=== PATIENT | female | born 1945 | race Caucasian/White ===

== ENCOUNTER 2025-03-03 19:17 | Emergency (ER) | payer MEDICARE, SELFPAY ==
[2025-03-03 19:25] VITALS: BP 120/56; PULSE 66; RESP 16; TEMP 36.2; O2SAT 100; BMI 18.0
--- NOTE | 2025-03-03 19:30 | DI.RAD.S_ITS ---
PROCEDURE: XR FOOT LT MIN 3V INDICATIONS: fall with pain and swelling in left foot TECHNIQUE: 3 views of the foot were acquired. COMPARISON: [facility], CR, XR ANKLE LT MIN 3V, 03/03/2025, 19:27. FINDINGS: Bones: No fractures or dislocations. No suspicious bony lesions. Soft tissues: No tibiotalar joint effusion. Achilles tendon appears normal. IMPRESSION: No acute bony abnormality. Dictated by: Willie Park M.D. on 03/03/2025 at 19:52 Approved by: Willie Park M.D. on 03/03/2025 at 19:53
--- NOTE | 2025-03-03 19:30 | DI.RAD.S_ITS ---
PROCEDURE: XR ANKLE LT MIN 3V INDICATIONS: fall with pain and swelling in left foot TECHNIQUE: 3 views of the ankle were acquired. COMPARISON: [facility], CR, XR FOOT LT MIN 3V, 03/03/2025, 19:27. FINDINGS: Bones: No fractures or dislocations. Ankle mortise is normally aligned. No suspicious bony lesions. Soft tissues: No tibiotalar joint effusion. Achilles tendon appears normal. IMPRESSION: No acute bony abnormality or significant effusion. Dictated by: Willie Park M.D. on 03/03/2025 at 19:52 Approved by: Willie Park M.D. on 03/03/2025 at 19:52
[2025-03-03 22:21] VITALS: BP 113/84; PULSE 59; RESP 16; O2SAT 100
--- NOTE | 2025-03-03 23:43 | ED_ITS ---
HPI - Extremity Injury (Lower) General Chief Complaint: Extremity Injury, Lower Stated Complaint: Fall; L Foot Injury Time Seen by Provider: 03/03/25 23:42 Source: patient, RN notes reviewed and old records reviewed Mode of arrival: Wheelchair Limitations: no limitations History of Present Illness HPI Narrative: 79-year-old female with history of dyslipidemia a complaint of left foot and ankle pain. Was stepping into the garage in the house missed a step on the landing with the left foot. Has pain and swelling that makes it uncomfortable to ambulate is able to walk on it initially. Has not noticed some swelling and bruising in the ankle and foot. No numbness tingling or weakness of the extremity. Patient has been icing and took some Tylenol a 1000 mg this afternoon. This occurred earlier in the day was able to ambulate quite a bit but it was worsening throughout the day. Patient states did not hit her head no neck or back pain, no other symptoms. No known drug allergies. No tobacco, occasional wine no recreational drugs. Has a follow up appointment for primary care in April just recently moved with the areas 6 days ago. Related Data Allergies Allergy/AdvReac Type Severity Reaction Status Date / Time No Known Drug Allergies Allergy Verified 03/03/25 19:25 Review of Systems Review of Systems ROS Unobtainable: All systems reviewed & are unremarkable except as noted in HPI and below Patient History Social History Smoking Status: Never smoker Smoking Status: Never smoker Alcohol type: wine Exam Narrative Exam Narrative: GENERAL: Alert and oriented x three, female in mild distress HEENT: Head normocephalic, atraumatic, EOMI, pupils reactive, face symmetric, moist mucous membranes NECK: Supple, full range of motion CARDIOVASCULAR: Regular rate and rhythm without murmurs, rubs or gallops. RESPIRATORY: Breath sounds equal bilaterally, no wheezes rales or rhonchi. ABDOMEN: Soft, nontender. Normoactive bowel sounds all 4 quadrants. No guarding or rebound, rigidity, no mass : No CVA tenderness EXTREMITIES: Normal range of motion, no clubbing. Patient has not edema in her left foot small amount ecchymosis. Particularly over the left hand dorsum lateral region. She was some bony tenderness over 1st and 2nd metatarsal otherwise minimal tenderness. Nontender in the toes. No tachypnea no tenderness. No mediolateral malleoli. No tenderness of the tibia fibula. No tenderness of the knee. Good range of motion. 2+ dorsalis pedis. Neurovascularly intact NEUROLOGICAL: Cranial nerves II through XII grossly intact. Moving all extremit ies SKIN: Warm, dry, no petechiae, no rashes or lesions. Initial Vital Signs Initial Vital Signs: Vital Signs Temperature 97.1 F L 03/03/25 19:25 Pulse Rate 66 03/03/25 19:25 Respiratory Rate 16 03/03/25 19:25 Blood Pressure 120/56 L 03/03/25 19:25 Pulse Oximetry 100 03/03/25 19:25 Oxygen Delivery Method Room Air 03/03/25 19:25 Course Orders Ordered: ED Orders 03/03/25 19:30 XR ankle LT min 3V Stat XR foot LT min 3V Stat Vital Signs Vital signs: Vital Signs - 8 hr 03/03/25 19:25 03/03/25 22:21 03/04/25 00:11 Temperature 97.1 F L Pulse Rate 66 59 L 64 Respiratory Rate 16 16 14 Blood Pressure 120/56 L 113/84 120/72 Pulse Oximetry 100 100 100 Oxygen Delivery Method Room Air Room Air Room Air MDM - Extremity Injury (Lower) MDM Narrative Medical decision making narrative: Left Foot x-ray shows no acute bony change. Left ankle x-ray shows no acute bony abnormality or significant effusion. 79-year-old female with mechanical ground level fall onto right foot denies any head or neck injuries did not hit her head. Was able to ambulate initially but came increasingly painful does have some tenderness over the metatarsals pain with weight-bearing [place] ankle rules and had x-ray imaging of foot and ankle which are negative for acute change. Placed in ortho shoe with crutches weightbear as tolerated patient is to follow up with the next week to 10 days if persistent symptoms. Discharge Plan Departure Patient Disposition: Home Clinical Impression: Sprain of foot, left Instructions: DI for Foot Sprain Activity Restrictions/Additional Instructions: Follow up in the next 7-10 days if you are not having improvement of symptoms, you can sometimes have small occult fractures that are noted until bone starts to heal. If you are having persistent symptoms you should be re-evaluated if your symptoms completely resolve you can return to normal activity. You can take acetaminophen and/or ibuprofen as needed for pain. Weightbear as tolerated with the crutches. Use ortho shoe if you are having pain. Splint Care: Keep splint clean and dry. Elevated affected body part to decrease swelling. OK to use ice pack on the affected body part. Use for 15-20 minutes each time, for 5-6x per day. If you develop worsening pain, numbness, tingling, discoloration of the affected body part, loosen the splint by loosening the ALEX wrap, and either see your doctor for an urgent re-assessment, or return to the Emergency Department. Return to the Emergency Department for any new or worsening symptoms. Stand Alone Forms: Patient Portal/API/Survey
[2025-03-04 00:11] VITALS: BP 120/72; PULSE 64; RESP 14; O2SAT 100
== END 2025-03-04 00:12 | disposition home or self-care (01) ==
PROVIDERS: Emergency Provider Emergency Medicine
DX: S93.601A Unspecified sprain of right foot, initial encounter (principal); W18.30XA Fall on same level, unspecified, initial encounter
CPT/HCPCS: 73610; 73630; 99282; 99283

== ENCOUNTER → 2025-05-23 09:12 | Outpatient (CLI) | payer MEDICARE, SELFPAY ==
[2025-05-23 10:58] LABS: Add Manual Diff / Slide Review NO; Hematocrit 36.1 % (36-46); Hemoglobin 12.2 g/dL (12.0-16.0); Lymphocytes Absolute Auto 1500 /uL (1100-4500); Mean Corpuscular HGB Conc 33.9 % (30-36); Mean Corpuscular Hemoglobin 30.4 PG (26-34); Mean Corpuscular Volume 89.9 fL (80-100); Platelet Count 250 X10^3/uL (150-400)
[2025-05-23 11:32] LABS: Alanine Aminotransferase 53 IU/L (<35); Albumin 4.2 g/dL (3.5-5.0); Albumin Globulin Ratio 1.7 (1.0-2.8); Alkaline Phosphatase 57 U/L (38-126); Blood Urea Nitrogen 18 mg/dL (7-17); Calcium 9.7 mg/dL (8.4-10.2); Carbon Dioxide 28 mmol/L (22-32); Chloride 98 mmol/L (98-107); Cholesterol 144 mg/dL (140-199); Estimated Glomerular Filt Rate > 60 mL/min (>60); Globulin 2.5 g/dL (1.7-4.1); Glucose 91 mg/dL (70-99); HDL Cholesterol 52 mg/dL (40-60); HEMOLYSIS < 15 (0-50); Potassium 4.5 mmol/L (3.4-5.1); Sodium 135 mmol/L (137-145); Total Protein 6.7 g/dL (6.3-8.2); Triglycerides 116 mg/dL (35-150)
[2025-05-23 11:47] LABS: Vitamin D 25 Hydroxy (D3) 31.8 ng/mL (30.0-100.0)
[2025-05-23 12:00] LABS: Ferritin 71 ng/mL (11-264)
== END ==
PROVIDERS: PCP Family Medicine; Referring Provider Family Medicine; Visit Provider Family Medicine
DX: E61.1 Iron deficiency (principal); E78.5 Hyperlipidemia, unspecified; M81.0 Age-related osteoporosis without current pathological fracture; K63.8219 Small intestinal bacterial overgrowth, unspecified; K52.9 Noninfective gastroenteritis and colitis, unspecified
CPT/HCPCS: 36415; 80053; 80061; 82306; 82728; 85025